=== PATIENT | female | born 2005 | race Caucasian/White ===

== ENCOUNTER 2024-09-17 08:54 | Emergency (ER) | payer OTHER, SELFPAY ==
[2024-09-17 08:58] VITALS: BP 130/91; PULSE 103; RESP 16; TEMP 36.7; O2SAT 98; BMI 27.4
--- NOTE | 2024-09-17 09:15 | ED_ITS ---
HPI - General Adult General Chief complaint: Abdominal Pain Stated complaint: Rt side abdominal pain Time Seen by Provider: 09/17/24 09:10 Source: patient Mode of arrival: ambulatory Limitations: no limitations History of Present Illness HPI narrative: 19-year-old female presenting today with right lower quadrant pain that started yesterday. Pain is a dull aching discomfort. Nothing makes it better or worse. She is not associated with eating. She denies any urinary symptoms such as frequency, urgency or dysuria. No blood in her urine. She states that she has daily bowel movements, last 1 was yesterday and was normal. Menses are regular, last 1 was 2 weeks ago. Denies sexual activity. Denies nausea or vomiting. Denies fevers or chills. Related Data Home Medications ?Medication ?Instructions ?Recorded ?Confirmed No Known Home Medications 09/17/24 09/17/24 Allergies Allergy/AdvReac Type Severity Reaction Status Date / Time cefprozil Allergy Intermediate Rash Verified 09/17/24 09:04 Review of Systems Status of ROS: Reports: 10 or more systems reviewed and unremarkable except as noted in History and below PFSH PFS Social History Smoking Status: Never smoker Do you use any of these nicotine containing products: None Second hand tobacco smoke exposure: No How often do you have a drink containing alcohol: monthly or less How many standard drinks containing alcohol do you have on a typical day: 1 or 2 How often do you have six or more drinks on one occasion: Never AUDIT-C Alcohol total score: 1 Non-prescribed substance use: denies use service: No Exam Narrative: Exam Narrative: Well-nourished well-developed patient in no acute distress. Alert and oriented. Answers questions appropriately. Mood and affect are appropriate. Thoughts are goal oriented and rational. No tangential or magical thinking noted. Patient speaks in full sentences without needing to catch their breath. HEENT: Normocephalic atraumatic. Pupils are equally round reactive to light. Extraocular muscles are intact. Conjunctivae are moist without any icterus noted. Moist mucous membranes. Posterior pharynx is normal. Neck is soft without any lymphadenopathy or thyromegaly. No masses are appreciated. Cardiovascular: Heart is regular rate and rhythm S1 and S2 are present without any murmurs. Lungs: Clear to auscultation bilaterally no wheezes rhonchi or rales are appreciated. Patient takes deep breaths without any discomfort. Abdomen: Soft and nondistended with normal bowel sounds. No guarding or rebound. No masses or organomegaly appreciated. Mild tenderness in the right lower quadrant just above and lateral to the mons pubis. No periumbilical pain. No pain at McBurney's point. Extremities: Bilateral lower extremities are without edema. Skin: Well perfused without any obvious rashes. Const: Vital Signs, click to edit/add: Vital Signs - 24 hr 09/17/24 08:58 Temperature 98.1 F Pulse Rate [Pulse Oximeter] 103 H Respiratory Rate 16 Blood Pressure [Le ft Upper Arm] 130/91 H Pulse Oximetry 98 Oxygen Delivery Me thod Room Air Course Course ED Course: Differential diagnoses includes ectopic , ovarian cyst, constipation, UTI. Less likely appendicitis. CBC normal. Normal lactate. UA, poor specimen, unremarkable. Normal chemistries. Normal LFTs Normal CRP. Normal lipase Ultrasound showing two cysts on the right ovary. Discussed with Dr. Beal who recommends repeat ultrasound in follow-up in 6-8 weeks. I have discussed results with patient. She feels like her pain can be controlled with ibuprofen and does not wish to have a prescription medications at this time. Vital Signs Vital signs: Initial Vital Signs Temperature 98.1 F 09/17/24 08:58 Temperature Source Temporal Artery Scan 09/17/24 08:58 Pulse Rate 103 H 09/17/24 08:58 Pulse Rhythm Regular 09/17/24 08:58 Pulse Strength 3+ Normal 09/17/24 08:58 Respiratory Rate 16 09/17/24 08:58 Blood Pressure 130/91 H 09/17/24 08:58 Blood Pressure Mean 104 09/17/24 08:58 Blood Pressure Position Sitting 09/17/24 08:58 Pulse Oximetry 98 09/17/24 08:58 Oxygen Delivery Method Room Air 09/17/24 08:58 Vital Signs Temperature 98.1 F 09/17/24 08:58 Pulse Rate 103 H 09/17/24 08:58 Respiratory Rate 16 09/17/24 08:58 Blood Pressure 130/91 H 09/17/24 08:58 Pulse Oximetry 98 09/17/24 08:58 Oxygen Delivery Method Room Air 09/17/24 08:58 Temperature 98.1 F 09/17/24 08:58 Pulse Rate 103 H 09/17/24 08:58 Respiratory Rate 16 09/17/24 08:58 Blood Pressure 130/91 H 09/17/24 08:58 Pulse Oximetry 98 09/17/24 08:58 Oxygen Delivery Method Room Air 09/17/24 08:58 Medical Decision Making MDM Narrative Medical decision making narrative: 19-year-old female with 2 cysts on the right ovary 1 likely a hemorrhagic cyst and the other likely an endometrioma. Lab Data Labs: Lab Results 09/17/24 09/17/24 Range/Units 09:23 09:25 WBC 7.78 (4.50-11.00) K/uL RBC 4.50 (4.00-5.20) m/uL Hgb 13.1 (12.0-16.0) gm/dL Hct 39.1 (33.0-51.0) % MCV 87 (80-100) fL MCH 29 (26-34) pg MCHC 34 (32-36) gm/dL RDW Coeff of Ham 11.9 (11.5-15.5) % Plt Count 341 (140-440) K/uL Neut % (Auto) 61.7 (42.0-72.0) % Lymph % (Auto) 26.0 (20-44) % Sherman % (Auto) 8.0 (0.0-11.0) % Eos % (Auto) 3.7 (0.0-7.0) % Baso % (Auto) 0.5 (0.0-3.0) % Neut # (Auto) 4.80 (1.7-7.0) K/uL Lymph # (Auto) 2.02 (0.90-2.90) K/uL Sherman # (Auto) 0.60 (0.00-0.90) K/UL Eos # (Auto) 0.29 (0.00-0.50) K/uL Baso # (Auto) 0.04 (0.00-0.30) K/uL Abs Immat Gran (auto) 0.01 (0.00-0.30) K/uL Imm/Tot Granulo (auto) 0.1 % Sodium 139 (135-149) mmol/L Potassium 4.2 (3.6-5.1) mmol/L Chloride 103 (96-114) mmol/L Carbon Dioxide 27 (20-32) mmol/L Anion Gap 9 (7-15) mEq/L BUN 10 (5-24) mg/dL Creatinine 0.6 (0.5-1.5) mg/dL Estimated Creat Clear 144.23 Estimated GFR 131 ml/min Glucose 90 (60-115) mg/dL Lactate 0.9 (0.5-1.9) mmol/L Calcium 9.6 (8.4-10.6) mg/dL Total Bilirubin 0.4 (0.1-1.5) mg/dL Direct Bilirubin 0.0 (0.0-0.5) mg/dL AST 26 (12-35) U/L ALT 22 (4-35) U/L Alkaline Phosphatase 53 (40-150) U/L C-Reactive Protein < 0.5 L (0.5-1.0) mg/dL Total Protein 7.6 (6.0-8.3) g/dL Albumin 4.9 (3.3-5.0) g/dL Lipase 52 (23-300) U/L Urine Color Yellow (Yellow) Urine Appearance Clear (Clear) Urine pH 7.0 (5.0-8.5) Ur Specific [place] 1.020 (1.000-1.030) Urine Protein 1+ A (Negative) Urine Glucose (UA) Negative (Negative) Urine Ketones Negative (Negative) Urine Blood Negative (Negative) Urine Nitrite Negative (Negative) Urine Bilirubin Negative (Negative) Urine Urobilinogen 0.2 (0.2-1.0) Ur Leukocyte Esterase Negative (Negative) Urine RBC 0-2 (0-2) Urine WBC 0-2 (0-5) Ur Squamous Epith Cells Moderate A (None-Few) Amorphous Sediment Few A (None) Urine Bacteria Moderate A (None) Urine HCG, Qual Negative (Negative) Imaging Data Pelvic ultrasound: Attestation: I have reviewed the pertinent imaging results. Radiologist's impression: TECHNIQUE: Ultrasound pelvis transabdominal and transvaginal for better assessment or to better visualize the endometrium. Real-time sonographic images with spectral and color Doppler imaging of the ovaries were obtained. COMPARISON: None. FINDINGS: Uterus: 8.3 x 3.4 x 4.8 cm. Normal echotexture of the myometrium. No masses. Endometrium: Transvaginal imaging was performed to better evaluate the endometrium. Endometrial thickness measures 8 mm. No sign of endometrial mass or fluid. Right ovary 7.2 x 4.2 x 4.4 centimeter. Left ovary 4.3 x 2.3 x 3.3 centimeters. In the right ovary there is a lesion with internal reticulation measuring 4 x 4 x 3.8 centimeters. There is a 2nd lesion with retracted clot, which was not measured, but is approximately 4 x 2.2 centimeters. Corpus luteum in the left ovary normal arterial and venous blood flow is demonstrated in both ovaries. Cul-de-sac: Trace fluid. IMPRESSION: There is a right ovarian hemorrhagic cyst with retracted clot (O-RADS 2). There is a 2nd right ovarian lesion measuring 4.3 x 2.3 x 3.3 centimeters with diffuse internal reticulation, likely endometrioma, less likely hemorrhagic cyst. If not excised, repeat ultrasound can be considered in 12 months (O -RADS 2). Normal uterus with normal endometrium. Discharge Plan Discharge Clinical Impression: Ovarian cyst Patient Disposition: Home, Self-Care Condition: Stable Additional Instructions: There are 2 ovarian cysts on the right ovary. One is called a hemorrhagic cyst which can cause discomfort for a couple of weeks. The other appears to be an endometrioma which can be a sign of endometriosis. Because of this you should follow-up with an OBGYN or primary care provider in 6-8 weeks for repeat ultrasound of your ovaries. Prescriptions: No Action No Known Home Medications Follow Up/Referrals: Provider,Not a Local [Primary Care Provider] - Stand Alone Forms: [employer] Info Instructions
--- NOTE | 2024-09-17 09:15 | CRLHL7_ITS ---
For Patients: As a result of the Century Cures Act, medical imaging exams and procedure reports are released immediately into your electronic medical record. You may view this report before your referring provider. If you have questions, please contact your health care provider. INDICATION: Right lower quadrant pain TECHNIQUE: Ultrasound pelvis transabdominal and transvaginal for better assessment or to better visualize the endometrium. Real-time sonographic images with spectral and color Doppler imaging of the ovaries were obtained. COMPARISON: None. FINDINGS: Uterus: 8.3 x 3.4 x 4.8 cm. Normal echotexture of the myometrium. No masses. Endometrium: Transvaginal imaging was performed to better evaluate the endometrium. Endometrial thickness measures 8 mm. No sign of endometrial mass or fluid. Right ovary 7.2 x 4.2 x 4.4 centimeter. Left ovary 4.3 x 2.3 x 3.3 centimeters. In the right ovary there is a lesion with internal reticulation measuring 4 x 4 x 3.8 centimeters. There is a 2nd lesion with retracted clot, which was not measured, but is approximately 4 x 2.2 centimeters. Corpus luteum in the left ovary normal arterial and venous blood flow is demonstrated in both ovaries. Cul-de-sac: Trace fluid. IMPRESSION: There is a right ovarian hemorrhagic cyst with retracted clot (O-RADS 2). There is a 2nd right ovarian lesion measuring 4.3 x 2.3 x 3.3 centimeters with diffuse internal reticulation, likely endometrioma, less likely hemorrhagic cyst. If not excised, repeat ultrasound can be considered in 12 months (O -RADS 2). Normal uterus with normal endometrium. Dictated by Alena Key MD @ 09/17/2024 10:41:42 AM (Electronically Signed)
[2024-09-17 09:31] LABS: Basophils Absolute Auto 0.04 K/uL (0.00-0.30); Basophils Percent Auto 0.5 % (0.0-3.0); Eosinophils Absolute Auto 0.29 K/uL (0.00-0.50); Eosinophils Percent Auto 3.7 % (0.0-7.0); Hematocrit 39.1 % (33.0-51.0); Hemoglobin* 13.1 gm/dL (12.0-16.0); Immature Granulocytes Abs Auto 0.01 K/uL (0.00-0.30); Immature Granulocytes Pct Auto 0.1 %; Lymphocytes Absolute Auto 2.02 K/uL (0.90-2.90); Mean Corpuscular HGB Conc 34 gm/dL (32-36); Mean Corpuscular Hemoglobin 29 pg (26-34); Mean Corpuscular Volume 87 fL (80-100); Neutrophils Percent Auto 61.7 % (42.0-72.0); Platelet Count* 341 K/uL (140-440); RDW Coefficient of Variation % 11.9 % (11.5-15.5); White Blood Count* 7.78 K/uL (4.50-11.00)
[2024-09-17 09:33] LABS: Appearance Urine Clear (Clear); Bilirubin Urine Negative (Negative); Blood Urine Negative (Negative); Color Urine Yellow (Yellow); Glucose Urine Negative (Negative); Ketones Urine Negative (Negative); Leukocyte Esterase Urine Negative (Negative); Nitrite Urine Negative (Negative); Protein Urine 1+ (Negative); Urobilinogen Urine 0.2 (0.2-1.0)
[2024-09-17 09:35] LABS: Ur HCG Qualitative* Negative (Negative)
[2024-09-17 09:41] LABS: Amorphous Sediment Urine Few; Bacteria Urine Moderate; RBC Urine 0-2 (0-2); Squamous Epithelial Cell Urine Moderate (None-Few); WBC Urine 0-2 (0-5)
[2024-09-17 09:47] LABS: Slide Review Reflex No
[2024-09-17 09:56] LABS: Lactate* 0.9 mmol/L (0.5-1.9)
[2024-09-17 10:12] LABS: Albumin* 4.9 g/dL (3.3-5.0)
[2024-09-17 10:13] LABS: Chloride* 103 mmol/L (96-114); Potassium* 4.2 mmol/L (3.6-5.1); Sodium* 139 mmol/L (135-149)
[2024-09-17 10:14] LABS: Total Protein* 7.6 g/dL (6.0-8.3)
[2024-09-17 10:15] LABS: Alanine Aminotransferase* 22 U/L (4-35); Alkaline Phosphatase* 53 U/L (40-150); Aspartate Amino Transferase* 26 U/L (12-35); Bilirubin Total* 0.4 mg/dL (0.1-1.5); Lipase* 52 U/L (23-300)
[2024-09-17 10:16] LABS: Anion Gap 9 mEq/L (7-15); Blood Urea Nitrogen* 10 mg/dL (5-24); Carbon Dioxide* 27 mmol/L (20-32); Creatinine* 0.6 mg/dL (0.5-1.5); Est. Creatinine Clearance* 144.23; Estimated Glomerular Filt Rate 131 ml/min
[2024-09-17 10:17] LABS: Calcium* 9.6 mg/dL (8.4-10.6); Glucose* 90 mg/dL (60-115)
[2024-09-17 10:20] LABS: C Reactive Protein* < 0.5 mg/dL (0.5-1.0)
== END 2024-09-17 11:05 | disposition home or self-care (01) ==
PROVIDERS: Emergency Provider Family Medicine
DX: N83.201 Unspecified ovarian cyst, right side (principal)
CPT/HCPCS: 36415; 76830; 76856; 80048; 80076; 81001; 81025; 83605; 83690; 85025; 86140; 87086; 93976; 99284

== ENCOUNTER 2024-10-10 07:22 | Emergency (ER) | payer OTHER, SELFPAY ==
[2024-10-10 07:27] VITALS: BP 136/82; PULSE 104; RESP 16; TEMP 36.3; O2SAT 99; BMI 27.4
--- NOTE | 2024-10-10 07:38 | ED_ITS ---
HPI - General Adult General Chief complaint: Abdominal Pain Stated complaint: R side abdominal pain Time Seen by Provider: 10/10/24 07:38 History of Present Illness HPI narrative: Patient with RLQ pain onset yesterday. HX ovarian cysts. LMP 09/29. Reporting nausea. Has tried heat packs and one dose ibuprofen (600mg) yesterday without relief. 19-year-old young woman presenting to the emergency department concern of right lower abdominal pain beginning yesterday. Describes an intense pressure. Just finished menses last week. No fever. Particularly bothersome is nausea. She has tried some heat packs as well as ibuprofen. Last time she presented here was about 3 weeks ago noting a right ovarian hemorrhagic cyst and another lesion suspected to be an endometrioma on the right ovary. At that time she was concerned about appendicitis. This time is even more intense. No fever. No constipation. No diarrhea. No vomiting. Ultrasound from 09/17/2024 TECHNIQUE: Ultrasound pelvis transabdominal and transvaginal for better assessment or to better visualize the endometrium. Real-time sonographic images with spectral and color Doppler imaging of the ovaries were obtained. COMPARISON: None. FINDINGS: Uterus: 8.3 x 3.4 x 4.8 cm. Normal echotexture of the myometrium. No masses. Endometrium: Transvaginal imaging was performed to better evaluate the endometrium. Endometrial thickness measures 8 mm. No sign of endometrial mass or fluid. Right ovary 7.2 x 4.2 x 4.4 centimeter. Left ovary 4.3 x 2.3 x 3.3 centimeters. In the right ovary there is a lesion with internal reticulation measuring 4 x 4 x 3.8 centimeters. There is a 2nd lesion with retracted clot, which was not measured, but is approximately 4 x 2.2 centimeters. Corpus luteum in the left ovary normal arterial and venous blood flow is demonstrated in both ovaries. Cul-de-sac: Trace fluid. IMPRESSION: There is a right ovarian hemorrhagic cyst with retracted clot (O-RADS 2). There is a 2nd right ovarian lesion measuring 4.3 x 2.3 x 3.3 centimeters with diffuse internal reticulation, likely endometrioma, less likely hemorrhagic cyst. If not excised, repeat ultrasound can be considered in 12 months (O -RADS 2). Normal uterus with normal endometrium. Related Data Home Medications ?Medication ?Instructions ?Recorded ?Confirmed No Known Home Medications 09/17/24 10/10/24 Allergies Allergy/AdvReac Type Severity Reaction Status Date / Time cefprozil Allergy Intermediate Rash Verified 10/10/24 07:30 Review of Systems Status of ROS: Reports: 6 or more systems reviewed and unremarkable except as noted in History and below [facility] Social History Smoking Status: Never smoker Do you use any of these nicotine containing products: None Second hand tobacco smoke exposure: No How often do you have a drink containing alcohol: monthly or less How many standard drinks containing alcohol do you have on a typical day: 1 or 2 How often do you have six or more drinks on one occasion: Never AUDIT-C Alcohol total score: 1 Non-prescribed substance use: denies use service: No Exam Narrative: Exam Narrative: Pleasant. Laughs easily. Accompanied by a friend. She is lying prone when I enter the room. Turns over without notable difficulty. She is breathing easily. Heart in elevated rate and regular rhythm. No murmur rub or gallop identified. Abdomen with normal bowel sounds. Is soft. She is most tender without peritoneal signs in the right adnexal area. Little bit in McBurney's area but I would say primarily this is that is adnexal pain. Const: Vital Signs, click to edit/add: Vital Signs - 24 hr 10/10/24 07:27 Temperature 97.4 F L Pulse Rate [Pulse Oximeter] 104 H Respiratory Rate 16 Blood Pressure [Ri ght Upper Arm] 136/82 Pulse Oximetry 99 Oxygen Delivery Me thod Room Air Documenting provider has reviewed patient's vital signs: yes Course Vital Signs Vital signs: Initial Vital Signs Temperature 97.4 F L 10/10/24 07:27 Temperature Source Temporal Artery Scan 10/10/24 07:27 Pulse Rate 104 H 10/10/24 07:27 Respiratory Rate 16 10/10/24 07:27 Blood Pressure 136/82 10/10/24 07:27 Blood Pressure Mean 100 10/10/24 07:27 Blood Pressure Position Sitting 10/10/24 07:27 Pulse Oximetry 99 10/10/24 07:27 Oxygen Delivery Method Room Air 10/10/24 07:27 Vital Signs Temperature 97.4 F L 11/12/24 07:27 Pulse Rate 104 H 10/10/24 07:27 Respiratory Rate 16 10/10/24 07:27 Blood Pressure 136/82 10/10/24 07:27 Pulse Oximetry 99 10/10/24 07:27 Oxygen Delivery Method Room Air 10/10/24 07:27 Temperature 97.4 F L 10/10/24 07:27 Pulse Rate 104 H 10/10/24 07:27 Respiratory Rate 16 10/10/24 07:27 Blood Pressure 136/82 10/10/24 07:27 Pulse Oximetry 99 10/10/24 07:27 Oxygen Delivery Method Room Air 10/10/24 07:27 Medications Administered Medications: Discontinued Medications Generic Name Dose Route Start Last Admin Trade Name Freq PRN Reason Stop Dose Admin Ondansetron HCl 4 mg 10/10/24 07:46 10/10/24 07:50 Ondansetron Odt 4 Mg Tab PO 10/10/24 07:47 4 mg ONCE ONE Administration Medical Decision Making MDM Narrative Medical decision making narrative: I would think this is likely to be related to prior ovarian cyst. Torsion is certainly in differential though I do not think discomfort rises to that level. Appendicitis, given exam and timing I think is less likely. Otherwise I suppose this could be bowel related pain. Would certainly verify status regardless. Will give Zofran ODT and have requested pelvic ultrasound urinalysis and urine hCG. Pending these results, further workup if necessary. Anticipating discharge, pending findings above, with continued NSAIDs, Zofran and possibly an opiate. Signing off at change of shift pending labs and ultrasound Medical Records Medical records reviewed: Yes I reviewed the patient's medical records Discharge Plan Discharge Clinical Impression: Ovarian cyst, Pelvic pain Patient Disposition: Home w/ Parent or Adult Condition: Stable Additional Instructions: Can take up to 800 mg ibuprofen or up to 1000 mg of acetaminophen per dose. Stay well-hydrated. Be seen for marked increase in persistent pain, repeated vomiting, fever. Would follow up if for re-evaluation in approximately 5-6 weeks. Prescriptions: No Action No Known Home Medications Follow Up/Referrals: Provider,Not a Local [Primary Care Provider] - Stand Alone Forms: [employer] Info Instructions
--- NOTE | 2024-10-10 07:45 | CRLHL7_ITS ---
For Patients: As a result of the Century Cures Act, medical imaging exams and procedure reports are released immediately into your electronic medical record. You may view this report before your referring provider. If you have questions, please contact your health care provider. INDICATION: Right adnexal pain TECHNIQUE: Ultrasound pelvis transabdominal and transvaginal for better assessment or to better visualize the endometrium. Real-time sonographic images with spectral and color Doppler imaging of the ovaries were obtained. COMPARISON: Pelvic ultrasound 09/17/2024 FINDINGS: Uterus: 7.5 x 3.4 x 4.5 cm. Normal echotexture of the myometrium. No masses. Endometrium: Transvaginal imaging was performed to better evaluate the endometrium. Endometrial thickness measures 6 mm. No sign of endometrial mass or fluid. Right ovary 6.8 x 4.3 x 5.8 centimeters. Left ovary 3.5 x 2.1 x 2.4 centimeters. Redemonstration right ovarian lesions, with the larger lesion measuring 4.4 x 3.7 x 3.9 centimeters with internal reticulation, previously 4 x 4 x 3.8 centimeters and the 2nd lesion with possible retracted clot in increased internal reticulation measuring 4.1 x 2.4 x 3.5 centimeters, previously 4 x 2.2 centimeters. Normal arterial and venous blood flow is demonstrated in both ovaries. Cul-de-sac: Trace pelvic free fluid. IMPRESSION: Similar size of right ovarian lesions, with the larger lesion likely representing endometrioma, as before (O-RADS 2) and repeat US in 12 months can be considered if this is not excised. The smaller lesion demonstrates more reticulation when compared to prior and may represent a hemorrhagic cyst or endometrioma(O-RADS 2). Combined size of these lesions increases risk for ovarian torsion, though there is no evidence of ovarian torsion at this time. Normal uterus with normal endometrial thickness. Trace pelvic free fluid. Dictated by Alena Key MD @ 10/10/2024 8:38:34 AM (Electronically Signed)
[2024-10-10] MEDS: ONDANSETRON ODT 4 MG TAB PO (07:50)
[2024-10-10 08:00] VITALS: PULSE 63; O2SAT 100
--- OUTSIDE RECORDS SUMMARY | 2024-10-10 08:01 | XMS_ITS | Encounter Summary ---
Author Organization [facility] Address [address] [place] [address]. [place] [address] Care Team Providers Care Aerosol Line Operator Name Role Phone Lianne Gonzalez MD Primary Care Provider [phone] Lianne Gonzalez MD Unavailable Reason for Visit * Reason Onset Date Comments Nausea 09/25/2024 Encounter Details Date Type Department Care Team (Late st Contact Info) Description 09/25/2024 MyC Medical Advice [facility] [address] [place] [phone] Lianne Gonzalez MD [address] [place], [place] [id number] Nausea (/) Social History Tobacco Use Types Packs/Day Years Used Date Smoking Tobacco: Never Smokeless Tobacco: Never Alcohol Use Standard Drinks/Week Comments No 0 (1 standard drink = 0.6 oz pur e alcohol) PHQ-2 Answer Date Recorded PHQ-2 Score 0 12/08/2021 Adolescent Education Answer Date Record ed Getting School Help Needed Not on file 08/20 Comments No Sex and Gender Information Value Date Recorded Sex Assigned at Not on file Legal Sex Female 12:27 AM CLINICAL DATA MANAGEMENT MANAGER Gender Identity Not on file Sexual Orientation Not on file documented as of this encounter Miscellaneous Notes * Telephone Encounter - Meghan Larose RN - 09/25/2024 9:[address] Gonzalez, Patient asking for something for nausea. You have not seen her since 12/08/2021. Do you want to prescribe something or does she need to be seen? Patient having nausea and asking for something for this. 09/17/24 (ER Visit- not in system) with right abdominal pain. 2 cysts on ovaries found (one hemorrhagic and one was a possible endometrioma). 12/08/[address] Gonzalez. Meghan Larose, RN on 09/25/2024 at 9:47 AM documented in this encounter Plan of Treatment Upcoming Encounters Date Type Department Care Team (Late st Contact Info) Description 11/17/2024 12:45 PM CLINICAL DATA MANAGEMENT MANAGER Appointment [address] [place] [phone] Lianne Gonzalez MD [address] [place] [address] [place], [place] [phone] 11/17/2024 1:30 PM CLINICAL DATA MANAGEMENT MANAGER Office Visit [address] [place] [phone] [place] [address] [place] [address] [place], [place] [phone] Arianne Alanis MD [address] [facility] [place], [place] [id number] 12/01/2024 1:40 PM CLINICAL DATA MANAGEMENT MANAGER Office Visit [address] [place] [phone] [place] [address] [place] [address] [place], [place] [id number] documented as of this encounter Visit Diagnoses Diagnosis Nausea- Primary Nausea alone documented in this encounter Additional Health Concerns Assessment Noted Time PHQ-9 Depression Total Score: 1 12/09/19 21 2:08 PM CLINICAL DATA MANAGEMENT MANAGER documented as of this encounter Care Teams Aerosol Line Operator Relationship Specialty Start Date End Date Lianne Gonzalez MD [address] [place] [id number] PCP - General Family Practice 09/09/18 Lianne Gonzalez MD [address] [place] [id number] Assigned PCP 12/22/20 documented as of this encounter
--- OUTSIDE RECORDS SUMMARY | 2024-10-10 08:01 | XMS_ITS | Referral Summary ---
Author Organization [facility] Address [address] [place] [address]. [place] [address] Care Team Providers Care Pricing Consultant Name Role Phone Lianne Gonzalez MD Primary Care Provider [phone] Lianne Gonzalez MD Unavailable Encounters Date Type Department Care Team Description 09/25/2024 [facility] [address] [place] [phone] Lianne Gonzalez MD Nausea (/) 09/17/2024 [facility] [address] [place] [phone] Lianne Gonzalez MD Patient Request (/) from Last 3 Months Allergies Active Allergy Reactions Criticality Noted Date Comments Cefprozil Rash Low 09/05/2013 Cefzil Medications norgestimate-et hinyl estradiol (ORTHO-CYCLEN) 0.25-35 MG-MCG tabletIndicatio ns:Dysmenorrhea Take 1 tablet by mouth daily 84 tablet 3 1 Active Additional Information Patient not taking.Reported on 12/08/2021 azithromycin (ZITHROMAX) 500 MG tabletIndicatio ns:Travel advice encounter Take 1 tablet (500 mg) by mouth daily 10 tablet 2 Active ciprofloxacin (CIPRO) 500 MG tabletIndicatio ns:Travel advice encounter Take 1 tablet (500 mg) by mouth 2 times daily 20 tablet 2 Active ondansetron (ZOFRAN ODT) 4 MG ODT tabIndications: Nausea Take 1 tablet (4 mg) by mouth every 8 hours as needed for nausea. 12 tablet 4 Active Active Problems No known active problems Resolved Problems Problem Noted Date Diagnosed Date Resolved Date Right otitis media with effusion 01/23/2015 06/26/2019 Immunizations Name Administration Dates Next Due COVID-19 MONOVALENT 12+ (Pfizer) 12/17/2021,02/28,03/05/2021 DTAP (<7y) 12/22/2004 DTAP-IPV, <7Y (QUADRACEL/KINRIX) 09/20/2008 DTaP/HepB/IPV 01/28/2004,2003,2003 HEPATITIS A (PEDS 12M-18Y) 06/28/2017,07/09/2016 HIB (PRP-T) 08/25/2004,2003,2003 HPV9 06/28/2017,09/17/2016,07/09/2016 HepB 2003 Influenza (H1N1) 11/19/2009,10/19/2009 Influenza (IIV3) PF 09/20/2015, 3,09/03/2012,2010,10/08/2010,08/24/2009 Influenza Intranasal Vaccine 09/21/2014 Influenza Vaccine >6 months,quad, PF 10/01/2017, 09/24/2016,09/13/2013 MMR 09/20/2008,12/22/2004 Meningococcal ACWY (Menactra??) 07/18/2021,09/17 Pneumococcal (PCV 7) 08/25/2004,2003,10/04 TDAP Vaccine (Boostrix) 07/09/2016 Typhoid IM 02/20/2022,04/06/2019 Varicella 08/27/2009,08/25/2004 Social History Tobacco Use Types Packs/Day Years [...] on file Legal Sex Female 12:27 AM CAREER PROFESSIONAL Gender Identity Not on file Sexual Orientation Not on file Last Filed Vital Signs Vital Sign Reading Time Taken Comments Blood Pressure 118/72 12/08/2021 10:47 AM CAREER PROFESSIONAL Pulse 58 12/08/2021 10:47 AM CAREER PROFESSIONAL Temperature 36.7 ??C (98.1 ??F) 12/08/2021 10:[address] Respiratory Rate 18 12/08/2021 10:47 AM CAREER PROFESSIONAL Oxygen Saturation 98% 12/08/2021 10:47 AM CAREER PROFESSIONAL Inhaled Oxygen Concentration - - Weight 73.5 kg (162 lb) 12/08/2021 10:47 AM CAREER PROFESSIONAL Height 170.2 cm (5' 7) 12/09/2020 2:04 PM CAREER PROFESSIONAL Body Mass Index 25.37 12/09/2020 2:04 PM CAREER PROFESSIONAL Plan of Treatment Upcoming Encounters Date Type Department Care Team (Late st Contact Info) Description 11/17/2024 12:45 PM CAREER PROFESSIONAL Appointment [facility] [address] [facility] [place] [phone] Lianne Gonzalez MD [address] [place], [place] [address] 11/17/2024 1:30 PM CAREER PROFESSIONAL Office Visit [facility] [address] [facility] [place] [phone] Lianne Gonzalez MD [address] [place], [place] [phone] Arianne Alanis MD [address] [place] [address] 12/01/2024 1:40 PM CAREER PROFESSIONAL Office Visit [facility] [address] [facility] [place] [phone] Lianne Gonzalez MD [address] [place], [place] [address] Insurance MEDICA CHOICE Care Teams Pricing Consultant Relationship Specialty Start Date End Date Lianne Gonzalez MD [address] [place] [address] PCP - General Family Practice 09/09/18 Lianne Gonzalez MD [address] [place] [address] Assigned PCP 12/22/20
--- OUTSIDE RECORDS SUMMARY | 2024-10-10 08:01 | XMS_ITS | Clinical Summary ---
Author Organization [facility] Address [address] [place] [address]. [place] [address] Care Team Providers Care Group Leader Semiconductor Processing Name Role Phone Lianne Gonzalez MD Primary Care Provider [phone] Lianne Gonzalez MD Unavailable Allergies Active Allergy Reactions Criticality Noted Date [...] Right otitis media with effusion 01/23/2015 06/26/2019 Encounters Date Type Department Care Team Description 09/25/2024 [facility] [address] [place] [phone] Lianne Gonzalez MD Nausea (/) 09/17/2024 [facility] [address] [place] [phone] Lianne Gonzalez MD Patient Request (/) from Last 3 Months Immunizations Name Administration Dates Next Due COVID-19 [...] (Boostrix) 07/09/2016 Typhoid IM 02/20/2022,04/06/2019 Varicella 08/27/2009,08/25/2004 Family History Medical History Relation Comments No Known Problems Brother Hyperlipidemia Father Rheumatoid Arthritis Mother Rheumatoid Arthritis Paternal Grandmother Sjogren's Paternal Grandmother No Known Problems Sister 1 No Known Problems Sister 2 Relation Status Comments Brother Alive Father Alive Mother Alive Paternal Grandmother Sister 1 Alive Sister 2 Alive Social History Tobacco Use Types Packs/Day Years [...] on file Legal Sex Female 12:27 AM CHIEF INVESTIGATOR Gender Identity Not on file Sexual Orientation Not on file Last Filed Vital Signs Vital Sign Reading Time Taken Comments Blood Pressure 118/72 12/08/2021 10:47 AM CHIEF INVESTIGATOR Pulse 58 12/08/2021 10:47 AM CHIEF INVESTIGATOR Temperature 36.7 ??C (98.1 ??F) 12/08/2021 10:[address] Respiratory Rate 18 12/08/2021 10:47 AM CHIEF INVESTIGATOR Oxygen Saturation 98% 12/08/2021 10:47 AM CHIEF INVESTIGATOR Inhaled Oxygen Concentration - - Weight 73.5 kg (162 lb) 12/08/2021 10:47 AM CHIEF INVESTIGATOR Height 170.2 cm (5' 7) 12/09/2020 2:04 PM CHIEF INVESTIGATOR Body Mass Index 25.37 12/09/2020 2:04 PM CHIEF INVESTIGATOR Plan of Treatment Upcoming Encounters Date Type Department Care Team (Late st Contact Info) Description 11/17/2024 12:45 PM CHIEF INVESTIGATOR Appointment [facility] [address] [place] [phone] Lianne Gonzalez MD [address] [place], [place] [address] 11/17/2024 1:30 PM CHIEF INVESTIGATOR Office Visit [facility] [address] [place] [phone] Lianne Gonzalez MD [address] [facility] [place] [address] Arianne Alanis MD [address] [place] [address] 12/01/2024 1:40 PM CHIEF INVESTIGATOR Office Visit [facility] [address] [place] [phone] Lianne Gonzalez MD [address] [place] [id number] Health Maintenance Due Date Last Done Comments ADVANCE CARE PLANNING 2003 ANNUAL REVIEW OF HM ORDERS 2003 CHLAMYDIA SCREENING 2003 HIV SCREENING 2018 YEARLY PREVENTIVE VISIT 06/26/2020 06/26/2019 HEPATITIS C SCREENING 2021 PHQ-2 (once per calendar year) 2023 12/08/2021, 12/09/2020, 12/09/2020, Additional history exists COVID-19 Vaccine ( season) 2024 09/02/2023, 09/17/2022, 12/17/2021, Additional history exists INFLUENZA VACCINE (#1) 2024 , 09/10/2022, 10/01/2017, Additional history exists PAP 2024 DTAP/TDAP/TD IMMUNIZATION (7 - Td or Tdap) 07/09/2026 07/09/2016, 09/20/2008, 12/22/2004, Additional history exists RSV VACCINE (1 - 1-dose 75+ series) 2078 HEPATITIS B IMMUNIZATION Completed 004, 2003, 2003, Additional history exists Pneumococcal Vaccine: Pediatrics (0 to 5 Years) and At-Risk Patients (6 to 64 Years) Aged Out 08/25/2004, 2003, 2003 No longer eligible based on patient's age to complete this topic HPV IMMUNIZATION Completed 06/28/2017, , 07/09/2016 MENINGITIS IMMUNIZATION Completed 07/18/2021, 09/17 RSV MONOCLONAL ANTIBODY Aged Out No l onger eligible based on patient's age to complete this topic Insurance MEDICA CHOICE Care Teams Group Leader Semiconductor Processing Relationship Specialty Start Date End Date Lianne Gonzalez MD [address] [place] [address] PCP - General Family Practice 09/09/18 Lianne Gonzalez MD [address] [place] [address] Assigned PCP 12/22/20
--- OUTSIDE RECORDS SUMMARY | 2024-10-10 08:02 | XMS_ITS | Encounter Summary ---
Author Organization [facility] Address [address] [place] [address]. [place] [address] Care Team Providers Care Police Commanding Officer Name Role Phone Lianne Gonzalez MD Primary Care Provider [phone] Lianne Gonzalez MD Unavailable Encounter Details Date Type Department Care Team (Late st Contact Info) Description 03/27/2021 Documentation Only INTERFACED REPORT Unknown, Provider Social History Tobacco Use Types Packs/Day Years Used Date Smoking Tobacco: Never Smokeless Tobacco: Never Alcohol Use Standard Drinks/Week Comments No 0 (1 standard drink = 0.6 oz pur e alcohol) PHQ-2 Answer Date Recorded PHQ-2 Score 0 12/09/2020 Comments No Sex and Gender Information Value Date Recorded Sex Assigned at Not on file Legal Sex Female 12:27 AM TERMINAL SYSTEM OPERATOR Gender Identity Not on file Sexual Orientation Not on file documented as of this encounter Plan of Treatment Upcoming Encounters Date Type Department Care Team (Late st Contact Info) Description 11/17/2024 12:45 PM TERMINAL SYSTEM OPERATOR Appointment [facility] [address] [place] [phone] Lianne Gonzalez MD [address] [place], [place] [address] 11/17/2024 1:30 PM TERMINAL SYSTEM OPERATOR Office Visit [facility] [address] [place] [phone] Lianne Gonzalez MD [address] [place], [place] [phone] Arianne Alanis MD [address] [place] [address] 12/01/2024 1:40 PM TERMINAL SYSTEM OPERATOR Office Visit [facility] [address] [place] [phone] Lianne Gonzalez MD [address] [place] [address] documented as of this encounter Visit Diagnoses Not on filedocumented in this encounter Additional Health Concerns Assessment Noted Time PHQ-9 Depression Total Score: 1 12/09/19 21 2:08 PM TERMINAL SYSTEM OPERATOR documented as of this encounter Care Teams Police Commanding Officer Relationship Specialty Start Date End Date Lianne Gonzalez MD [address] [place] [address] PCP - General Family Practice 09/09/18 Lianne Gonzalez MD [address] [place] [address] Assigned PCP 12/22/20 documented as of this encounter
--- OUTSIDE RECORDS SUMMARY | 2024-10-10 08:02 | XMS_ITS | Encounter Summary ---
Author Organization [facility] Address [address] [place] [address]. [place] [address] Care Team Providers Care Dice Dealer Name Role Phone Lianne Gonzalez MD Primary Care Provider [phone] Lianne Gonzalez MD Unavailable Reason for Referral * Consultation (Routine: Next available opening) - Authorized Specialty Diagnoses / Procedures Referred By Contning t Referred To Contact liquor bridge operator helper Diagnoses Cyst of ovary, unspecified laterality Lianne Gonzalez MD [address] [place] [address] Phone: tel: fax: [facility] [address] [place] [address] Phone: tel: Referral ID Status Reason Start Date Expiration Date V isits Requested Visits Authorized [id number] Authorized 09/18/2024 09/18/2025 1 1 Question Answer Reason for Referral: Other My Clinical Question Is: follow up ovarian cysts Have orders been placed in [facility] (imaging, labs, etc.) that need to be completed prior to the patient's consult? Yes Scheduling Instructions: [facility] will call you to coordinate your care as prescribed by your provider. If you don't hear from a sales representative [employer] within 2 business days, please call . Comments Please be aware that coverage of these services is subject to the terms and limitations of your health insurance plan. Call member services at your health plan with any benefit or coverage questions. [facility] will call you to coordinate your care as prescribed by your provider. If you don't hear from a sales representative [employer] within 2 business days, please call . * Diagnostic Imaging Ultrasound (Routine) - Authorized Specialty Diagnoses / Procedures Referred By Contning t Referred To Contact Radiology. Diagnoses Cyst of ovary, unspecified laterality Procedures US Pelvic Complete with Transvaginal Lianne Gonzalez MD [address] [place] [address] Phone: tel: fax: Referral ID Status Reason Start Date Expiration Date V isits Requested Visits Authorized [id number] Authorized 09/18/2024 09/18/2025 1 1 Reason for Visit * Reason Onset Date Comments Patient Request 09/17/2024 Encounter Details Date Type Department Care Team (Late st Contact Info) Description 09/17/2024 MyC Medical Advice [facility] [address] [employer] [facility] [place] [phone] Lianne Gonzalez MD [address] [employer] [facility] [place] [address] Patient Request (/) Social History Tobacco Use Types Packs/Day [...] on file Legal Sex Female 12:27 AM CRYSTAL CUTTER Gender Identity Not on file Sexual Orientation Not on file documented as of this encounter Miscellaneous Notes * Telephone Encounter - Meghan Larose RN - 09/18/2024 9:35 AM CDT 09/17/24 (ER Visit- not in system) with right abdominal pain. 2 cysts on ovaries found (one hemorrhagic and one was a possible endometrioma). Follow up in 6-8 weeks- with PCP or UNINDENTURED APPRENTICE? Meghan Larose RN on 09/18/2024 at 9:36 AM documented in this encounter Plan of Treatment Upcoming Encounters Date Type Department Care Team (Late st Contact Info) Description 11/17/2024 12:45 PM CRYSTAL CUTTER Appointment [facility] [address] [facility] [place] [phone] Lianne Gonzalez MD [address] [place], [place] [address] 11/17/2024 1:30 PM CRYSTAL CUTTER Office Visit [facility] [address] [place] [phone] Lianne Gonzalez MD [address] [place], [place] [phone] Arianne Alanis MD [address] [place], [place] [address] 12/01/2024 1:40 PM CRYSTAL CUTTER Office Visit [facility] [address] [place] [phone] Lianne Gonzalez MD [address] [place], [place] [address] Scheduled Orders Name Type Priority Associated Diagnoses Orde r Schedule US Pelvic Complete with Transvaginal Imaging Routine Cyst of ovary, unspecified laterality Expected: 11/15/2024 (Approximate), Expires: 09/18/2025 Scheduled Referrals Name Type Priority Associated Diagnoses Orde r Schedule Caustic Purification Operator Associate Professor Plant Pathology Referral Referral Routine: Next available opening Cyst of ovary, unspecified laterality Expected: 09/18/2024 (Approximate), Expires: 09/18/2025 documented as of this encounter Visit Diagnoses Diagnosis Cyst of ovary, unspecified laterality- Primary documented in this encounter Additional Health Concerns Assessment Noted Time PHQ-9 Depression Total Score: 1 12/09/19 2:08 PM CRYSTAL CUTTER documented as of this encounter Care Teams Dice Dealer Relationship Specialty Start Date End Date Lianne Gonzalez MD [address] [place] [address] PCP - General Family Practice 09/09/18 Lianne Gonzalez MD [address] [place] [address] Assigned PCP 12/22/20 documented as of this encounter
--- OUTSIDE RECORDS SUMMARY | 2024-10-10 08:02 | XMS_ITS | Encounter Summary ---
Author Organization [facility] Address [address] [place] [address]. [place] [address] Care Team Providers Care Physician Chief Of Pathology Name Role Phone Lianne Gonzalez MD Primary Care Provider [phone] Lianne Gonzalez MD Unavailable Encounter Details Date Type Department Care Team (Late st Contact Info) Description 04/11/2021 Documentation Only INTERFACED REPORT Unknown, Provider Social [...] on file Legal Sex Female 12:27 AM TACKING STITCH REMOVER Gender Identity Not on file Sexual Orientation Not on file documented as of this encounter Plan of Treatment Upcoming Encounters Date Type Department Care Team (Late st Contact Info) Description 11/17/2024 12:45 PM TACKING STITCH REMOVER Appointment [facility] [address] [place] [phone] Lianne Gonzalez MD [address] [place], [place] [address] 11/17/2024 1:30 PM TACKING STITCH REMOVER Office Visit [facility] [address] [facility] [place] [phone] Lianne Gonzalez MD [address] [place], [place] [phone] Arianne Alanis MD [address] [place] [address] 12/01/2024 1:40 PM TACKING STITCH REMOVER Office Visit [facility] [address] [place] [phone] Lianne Gonzalez MD [address] [place] [address] documented as of this encounter Visit Diagnoses Not on filedocumented in this encounter Additional Health Concerns Assessment Noted Time PHQ-9 Depression Total Score: 1 12/09/19 21 2:08 PM TACKING STITCH REMOVER documented as of this encounter Care Teams Physician Chief Of Pathology Relationship Specialty Start Date End Date Lianne Gonzalez MD [address] [place] [address] PCP - General Family Practice 09/09/18 Lianne Gonzalez MD [address] [place] [address] Assigned PCP 12/22/20 documented as of this encounter
--- OUTSIDE RECORDS SUMMARY | 2024-10-10 08:02 | XMS_ITS | Encounter Summary ---
Author Organization [facility] Address [address] [place] [address]. [place] [address] Care Team Providers Care Management Trainee Name Role Phone Francie Castillo MD Primary Care Provider [place] Lianne Javier MD Primary Care Provider [phone] PA-C Unavailable + Lianne Gonzalez MD Unavailable Encounter Details Date Type Department Care Team (Late st Contact Info) Description 09/05/2013 Abstract [facility] [address] [place] [address] Clinic, [place] [facility] [place] [facility] [address] [place] [id number] Social History Tobacco Use Types Packs/Day Years Used Date Smoking Tobacco: Never Assessed Comments Unknown Sex and Gender Information Value Date Recorded Sex Assigned at Not on file Legal Sex Female 12:27 AM CORE MAKER HELPER Gender Identity Not on file Sexual Orientation Not on file documented as of this encounter Plan of Treatment Upcoming Encounters Date Type Department Care Team (Late st Contact Info) Description 11/17/2024 12:45 PM CORE MAKER HELPER Appointment [facility] [address] [place] [phone] Lianne Gonzalez MD [address] [place] [id number] 11/17/2024 1:30 PM CORE MAKER HELPER Office Visit [facility] [address] [place] [phone] Lianne Gonzalez MD [address] [place] [address] Arianne Alanis MD [address] [place] [address] 12/01/2024 1:40 PM CORE MAKER HELPER Office Visit [facility] [address] [place] [phone] Lianne Gonzalez MD [address] [place] [address] documented as of this encounter Visit Diagnoses Not on filedocumented in this encounter Additional Health Concerns Infection Onset Date Last Indicated Resolved Time Rule Out COVID-19 07/29/2020 07/29/2020 07/31/2020 12:33 AM CDT documented as of this encounter Care Teams Management Trainee Relationship Specialty Start Date End Date Francie Castillo MD PCP - General Family Practice 09/04/13 09/08/18 Lianne Gonzalez MD [address] [place] [address] PCP - General Family Practice 09/09/[address] PA-C [address] [place] [address] Assigned PCP 07/09/19 12/21/20 Lianne Gonzalez MD [address] [place] [address] Assigned PCP 12/22/20 documented as of this encounter
--- OUTSIDE RECORDS SUMMARY | 2024-10-10 08:02 | XMS_ITS | Encounter Summary ---
Author Organization [facility] Address [address] [place] [address]. [place] [address] Care Team Providers Care Deicer Kit Assembler Name Role Phone Lianne Gonzalez MD Primary Care Provider [phone] Lianne Gonzalez MD Unavailable Encounter Details Date Type Department Care Team (Late st Contact Info) Description 03/06/2021 Documentation Only INTERFACED REPORT Unknown, Provider Social [...] on file Legal Sex Female 12:27 AM MANAGER MILITARY Gender Identity Not on file Sexual Orientation Not on file documented as of this encounter Plan of Treatment Upcoming Encounters Date Type Department Care Team (Late st Contact Info) Description 11/17/2024 12:45 PM MANAGER MILITARY Appointment [facility] [address] [place] [phone] Lianne Gonzalez MD [address] [place], [place] [address] 11/17/2024 1:30 PM MANAGER MILITARY Office Visit [facility] [address] [facility] [place] [phone] Lianne Gonzalez MD [address] [place], [place] [phone] Arianne Alanis MD [address] [place] [address] 12/01/2024 1:40 PM MANAGER MILITARY Office Visit [facility] [address] [place] [phone] Lianne Gonzalez MD [address] [place] [address] documented as of this encounter Visit Diagnoses Not on filedocumented in this encounter Additional Health Concerns Assessment Noted Time PHQ-9 Depression Total Score: 1 12/09/19 21 2:08 PM MANAGER MILITARY documented as of this encounter Care Teams Deicer Kit Assembler Relationship Specialty Start Date End Date Lianne Gonzalez MD [address] [place] [address] PCP - General Family Practice 09/09/18 Lianne Gonzalez MD [address] [place] [address] Assigned PCP 12/22/20 documented as of this encounter
--- OUTSIDE RECORDS SUMMARY | 2024-10-10 08:02 | XMS_ITS | Encounter Summary ---
Author Organization [place] Address [address] [place] [address]. [place] [address] Care Team Providers Care Technician Automatic Name Role Phone Lianne Gonzalez MD Primary Care Provider [phone] Lianne Gonzalez MD Unavailable Encounter Details Date Type Department Care Team (Late st Contact Info) Description 03/21/2021 Documentation Only INTERFACED REPORT Unknown, Provider Social [...] on file Legal Sex Female 12:27 AM PRODUCT TESTER FIBERGLASS Gender Identity Not on file Sexual Orientation Not on file documented as of this encounter Plan of Treatment Upcoming Encounters Date Type Department Care Team (Late st Contact Info) Description 11/17/2024 12:45 PM PRODUCT TESTER FIBERGLASS Appointment [facility] [address] [place] [phone] Lianne Gonzalez MD [address] [place], [place] [address] 11/17/2024 1:30 PM PRODUCT TESTER FIBERGLASS Office Visit [facility] [address] [facility] [phone] Lianne Gonzalez MD [address] [place], [place] [phone] Arianne Alanis MD [address] [place] [address] 12/01/2024 1:40 PM PRODUCT TESTER FIBERGLASS Office Visit [facility] [address] [place] [phone] Lianne Gonzalez MD [address] [place] [address] documented as of this encounter Visit Diagnoses Not on filedocumented in this encounter Additional Health Concerns Assessment Noted Time PHQ-9 Depression Total Score: 1 12/09/19 21 2:08 PM PRODUCT TESTER FIBERGLASS documented as of this encounter Care Teams Technician Automatic Relationship Specialty Start Date End Date Lianne Gonzalez MD [address] [place] [address] PCP - General Family Practice 09/09/18 Lianne Gonzalez MD [address] [place] [address] Assigned PCP 12/22/20 documented as of this encounter
[2024-10-10 08:22] LABS: Ur HCG Qualitative* Negative (Negative)
[2024-10-10 08:31] LABS: Appearance Urine Clear (Clear); Bilirubin Urine Negative (Negative); Blood Urine Negative (Negative); Color Urine Yellow (Yellow); Glucose Urine Negative (Negative); Ketones Urine Negative (Negative); Protein Urine Negative (Negative); Specific Gravity Urine 1.015 (1.000-1.030); Urobilinogen Urine 0.2 (0.2-1.0)
[2024-10-10 08:32] LABS: Leukocyte Esterase Urine Negative (Negative); Nitrite Urine Negative (Negative); RBC Urine 0-2 (0-2); Squamous Epithelial Cell Urine Few (None-Few); WBC Urine 0-2 (0-5)
== END 2024-10-10 09:06 | disposition home or self-care (01) ==
PROVIDERS: Family Medicine; Emergency Provider Student in an Organized Health Care Education/Training Program
DX: N83.201 Unspecified ovarian cyst, right side (principal); R10.2 Pelvic and perineal pain
CPT/HCPCS: 76830; 81001; 81025; 93976; 99284; A9270

== ENCOUNTER 2024-10-19 10:30 | Day surgery (SDC) | payer OTHER, SELFPAY ==
[2024-10-19] VITALS (14 sets, daily range): BP systolic 117–142; BP diastolic 52–84; PULSE 51–78; RESP 14–20; TEMP 36.2–36.6; O2SAT 96–100; BMI 27.6
--- OUTSIDE RECORDS SUMMARY | 2024-10-19 10:33 | XMS_ITS | Clinical Summary ---
Author Organization [facility] Address [address] [place] [address]. [place] [address] Care Team Providers Care Pump Runner Name Role Phone Lianne Gonzalez MD Primary Care Provider [phone] Lianne Gonzalez MD Unavailable Allergies Active Allergy [...] Encounters Date Type Department Care Team Description 10/17/2024 [facility] Medical Advice [facility] [address] [place] [address] Lianne Gonzalez MD 09/25/2024 [facility] Medical [facility] [address] [place] [phone] Lianne Gonzalez MD Nausea (/) 09/17/2024 [facility] Medical Advice [facility] [address] [place] [phone] Lianne Gonzalez MD Patient Request (/) from [...] PF 10/01/2017, 09/24/2016,09/13/2013 MMR 09/20/2008,12/22/2004 Meningococcal ACWY (Menactra ) 07/18/2021,09/17/2016 Pneumococcal (PCV 7) 08/25/2004,2003,10/04 TDAP Vaccine (Boostrix) [...] on file Legal Sex Female 12:27 AM MACHINE WELT BUTTER Gender Identity Not on file Sexual Orientation Not on file Last Filed Vital Signs Vital Sign Reading Time Taken Comments Blood Pressure 118/72 12/08/2021 10:47 AM MACHINE WELT BUTTER Pulse 58 12/08/2021 10:47 AM MACHINE WELT BUTTER Temperature 36.7 C (98.1 F) 12/08/2021 10:47 AM MACHINE WELT BUTTER Respiratory Rate 18 12/08/2021 10:47 AM MACHINE WELT BUTTER Oxygen Saturation 98% 12/08/2021 10:47 AM MACHINE WELT BUTTER Inhaled Oxygen Concentration - - Weight 73.5 kg (162 lb) 12/08/2021 10:47 AM MACHINE WELT BUTTER Height 170.2 cm (5' 7) 12/09/2020 2:04 PM MACHINE WELT BUTTER Body Mass Index 25.37 12/09/2020 2:04 PM MACHINE WELT BUTTER Plan of Treatment Upcoming Encounters Date Type Department Care Team (Late st Contact Info) Description 11/17/2024 12:45 PM MACHINE WELT BUTTER Appointment [facility] [address] [facility] [place] [phone] Lianne Gonzalez MD [address] [place] [address] 11/17/2024 1:30 PM MACHINE WELT BUTTER Office Visit [facility] [address] [place] [phone] Lianne Gonzalez MD [address] [place] [address] Arianne Alanis MD [address] [place] [address] 12/01/2024 1:40 PM MACHINE WELT BUTTER [facility] [address] [place] [phone] Lianne Gonzalez MD [address] [place] [address] Health Maintenance Due Date Last Done Comments [...] this topic Insurance MEDICA CHOICE Care Teams Pump Runner Relationship Specialty Start Date End Date Lianne Gonzalez MD [address] [place] [id number] PCP - General Family Practice 09/09/18 Lianne Gonzalez MD [address] [place] [address] Assigned PCP 12/22/20
--- OUTSIDE RECORDS SUMMARY | 2024-10-19 10:34 | XMS_ITS | Encounter Summary ---
Author Organization [facility] Address [address] [place] [address]. [place] [address] Care Team Providers Care Rfid Engineer Name Role Phone Lianne Gonzalez MD Primary Care Provider [phone] Lianne Gonzalez MD Unavailable Encounter Details Date [...] on file Legal Sex Female 12:27 AM TRANSMISSION TESTER Gender Identity Not on file Sexual Orientation Not on file documented as of this encounter Plan of Treatment Upcoming Encounters Date Type Department Care Team (Late st Contact Info) Description 11/17/2024 12:45 PM TRANSMISSION TESTER Appointment [facility] [address] [place] [phone] Lianne Gonzalez MD [address] [place], [place] [address] 11/17/2024 1:30 PM TRANSMISSION TESTER Office Visit [facility] [address] [place] [place] [phone] Lianne Gonzalez MD [address] [place], [place] [phone] Arianne Alanis MD [address] [place] [address] 12/01/2024 1:40 PM TRANSMISSION TESTER Office Visit [facility] [address] [place] [phone] Lianne Gonzalez MD [address] [place] [address] documented as of this encounter Visit Diagnoses Not on filedocumented in this encounter Additional Health Concerns Assessment Noted Time PHQ-9 Depression Total Score: 1 12/09/19 21 2:08 PM TRANSMISSION TESTER documented as of this encounter Care Teams Rfid Engineer Relationship Specialty Start Date End Date Lianne Gonzalez MD [address] [place] [address] PCP - General Family Practice 09/09/18 Lianne Gonzalez MD [address] [place] [address] Assigned PCP 12/22/20 documented as of this encounter
--- OUTSIDE RECORDS SUMMARY | 2024-10-19 10:34 | XMS_ITS | Encounter Summary ---
Author Organization [place] Address [address] [place] [address]. [place] [address] Care Team Providers Care Progressive Care Nurse Name Role Phone Lianne Gonzalez MD Primary Care Provider [phone] Lianne Gonzalez MD Unavailable Reason for Referral * Consultation (Routine: Next available opening) - Authorized Specialty Diagnoses / Procedures Referred By Contning t Referred To Contact automation engineering manager Diagnoses Cyst of ovary, unspecified laterality Lianne Gonzalez MD [address] [place] [address] Phone: tel: fax: [facility] [address] [place] [address] Phone: tel: Referral ID Status Reason Start Date Expiration Date V isits Requested Visits Authorized [id number] Authorized 09/18/2024 09/18/2025 1 1 Question Answer Reason for Referral: Other My Clinical Question Is: follow up ovarian cysts Have orders been placed in [facility] (imaging, labs, etc.) that need to be completed prior to the patient's consult? Yes Scheduling Instructions: [facility] will call you to coordinate your care as prescribed by your provider. If you don't hear from a branch service representative within 2 business days, please call . Comments Please be aware that coverage of these services is subject to the terms and limitations of your health insurance plan. Call member services at your health plan with any benefit or coverage questions. [facility] will call you to coordinate your care as prescribed by your provider. If you don't hear from a branch service representative within 2 business days, please call . * Diagnostic Imaging Ultrasound (Routine) - Authorized Specialty Diagnoses / Procedures Referred By Contning t Referred To Contact Radiology. Diagnoses Cyst of ovary, unspecified laterality Procedures US Pelvic Complete with Transvaginal Lianne Gonzalez MD [address] [employer] [place] [address] Phone: tel: fax: Referral ID Status Reason Start Date Expiration Date V isits Requested Visits Authorized [id number] Authorized 09/18/2024 09/18/2025 1 1 Reason for Visit * Reason Onset Date Comments Patient Request 09/17/2024 Encounter Details Date Type Department Care Team (Late st Contact Info) Description 09/17/2024 MyC Medical Advice [facility] [address] [facility] [place] [phone] Lianne Gonzalez MD [address] [employer] [facility] [place] [address] Patient Request (/) Social History Tobacco Use [...] file Legal Sex Female 12:27 AM MANAGER EXPORT Gender Identity Not on file Sexual Orientation Not on file documented as of this encounter Miscellaneous Notes * Telephone Encounter - Meghan Larose RN - 09/18/2024 9:35 AM CDT 09/17/24 (ER Visit- not in system) with right abdominal pain. 2 cysts on ovaries found (one hemorrhagic and one was a possible endometrioma). Follow up in 6-8 weeks- with PCP or PARTNER MANAGER? Meghan Larose RN on 09/18/2024 at 9:36 AM documented in this encounter Plan of Treatment Upcoming Encounters Date Type Department Care Team (Late st Contact Info) Description 11/17/2024 12:45 PM MANAGER EXPORT Appointment [facility] [address] [facility] [place] [phone] Lianne Gonzalez MD [address] [place] [address] 11/17/2024 1:30 PM MANAGER EXPORT Office Visit [facility] [address] [place] [phone] Lianne Gonzalez MD [address] [place] [phone] Arianne Alanis MD [address] [place] [address] 12/01/2024 1:40 PM MANAGER EXPORT Office Visit [facility] [address] [place] [phone] Lianne Gonzalez MD [address] [place], [place] [address] Scheduled Orders Name Type Priority Associated Diagnoses Orde r Schedule US Pelvic Complete with Transvaginal Imaging Routine Cyst of ovary, unspecified laterality Expected: 11/15/2024 (Approximate), Expires: 09/18/2025 Scheduled Referrals Name Type Priority Associated Diagnoses Orde r Schedule Director Of Spa And Guest Experience Work Order Sorting Clerk Referral Referral Routine: Next available opening Cyst of ovary, unspecified laterality Expected: 09/18/2024 (Approximate), Expires: 09/18/2025 documented as of this encounter Visit Diagnoses Diagnosis Cyst of ovary, unspecified laterality- Primary documented in this encounter Additional Health Concerns Assessment Noted Time PHQ-9 Depression Total Score: 1 12/09/19 2:08 PM MANAGER EXPORT documented as of this encounter Care Teams Progressive Care Nurse Relationship Specialty Start Date End Date Lianne Gonzalez MD [address] [place] [address] PCP - General Family Practice 09/09/18 Lianne Gonzalez MD [address] [place] [address] Assigned PCP 12/22/20 documented as of this encounter
--- OUTSIDE RECORDS SUMMARY | 2024-10-19 10:34 | XMS_ITS | Encounter Summary ---
Author Organization [place] Address [address] [place] [address]. [place] [address] Care Team Providers Care Real Estate Investment Analyst Name Role Phone Lianne Gonzalez MD Primary Care Provider [phone] Lianne Gonzalez MD Unavailable Reason for Visit * Reason Onset Date Comments Nausea 09/25/2024 Encounter Details Date Type Department Care Team (Late st Contact Info) Description 09/25/2024 MyC Medical Advice [facility] [address] [place] [address] Lianne Gonzalez MD [address] [place], [place] [phone] Nausea (/) Social History Tobacco Use Types [...] on file Legal Sex Female 12:27 AM AGENCY SERVICE COORDINATOR Gender Identity Not on file Sexual Orientation [...] st Contact Info) Description 11/17/2024 12:45 PM AGENCY SERVICE COORDINATOR Appointment [address] [place] [phone] Lianne Gonzalez MD [address] [place] [address] [place], [place] [address] 11/17/2024 1:30 PM AGENCY SERVICE COORDINATOR Office Visit [address] [place] [phone] [place] [address] [place] [address] [place], [place] [phone] Arianne Alanis MD [address] [facility] [place], [place] [address] 12/01/2024 1:40 PM AGENCY SERVICE COORDINATOR Office Visit [address] [place] [phone] [place] [address] [place] [address] [place], [place] [address] documented as of this encounter Visit Diagnoses Diagnosis Nausea- Primary Nausea alone documented in this encounter Additional Health Concerns Assessment Noted Time PHQ-9 Depression Total Score: 1 12/09/19 21 2:08 PM AGENCY SERVICE COORDINATOR documented as of this encounter Care Teams Real Estate Investment Analyst Relationship Specialty Start Date End Date Lianne Gonzalez MD [address] [employer] [place] [address] PCP - General Family Practice 09/09/18 Lianne Gonzalez MD [address] [place] [address] Assigned PCP 12/22/20 documented as of this encounter
--- OUTSIDE RECORDS SUMMARY | 2024-10-19 10:34 | XMS_ITS | Encounter Summary ---
Author Organization [place] Address [address] [place], [place] [address]. [place] [address] Care Team Providers Care Kiln Tester Name Role Phone Lianne Gonzalez MD Primary Care Provider [phone] Lianne Gonzalez MD Unavailable Encounter Details Date Type Department Care Team (Late st Contact Info) Description 10/17/2024 MyC Medical Advice [facility] [address] [place] [address] Lianne Gonzalez MD [address] [employer] [facility] [place] [place] [id number] Social History Tobacco Use Types Packs/Day Years [...] on file Legal Sex Female 12:27 AM BUILDING MAINTENANCE TECHNICIAN Gender Identity Not on file Sexual Orientation Not on file documented as of this encounter Plan of Treatment Upcoming Encounters Date Type Department Care Team (Late st Contact Info) Description 11/17/2024 12:45 PM BUILDING MAINTENANCE TECHNICIAN Appointment [facility] [address] [place] [address] Lianne Gonzalez MD [address] [employer] [facility] [place] [id number] 11/17/2024 1:30 PM BUILDING MAINTENANCE TECHNICIAN Office Visit [facility] [address] [place] [phone] Lianne Gonzalez MD [address] [place] [address] Arianne Alanis MD [address] [place], [place] [address] 12/01/2024 1:40 PM BUILDING MAINTENANCE TECHNICIAN Office Visit [facility] [address] [place] [phone] Lianne Gonzalez MD [address] [place] [address] documented as of this encounter Visit Diagnoses Not on filedocumented in this encounter Additional Health Concerns Assessment Noted Time PHQ-9 Depression Total Score: 1 12/09/19 21 2:08 PM BUILDING MAINTENANCE TECHNICIAN documented as of this encounter Care Teams Kiln Tester Relationship Specialty Start Date End Date Lianne Gonzalez MD [address] [place] [address] PCP - General Family Practice 09/09/18 Lianne Gonzalez MD [address] [place] [address] Assigned PCP 12/22/20 documented as of this encounter
--- OUTSIDE RECORDS SUMMARY | 2024-10-19 10:34 | XMS_ITS | Encounter Summary ---
Author Organization [facility] Address [address] [place] [address]. [place] [address] Care Team Providers Care Telegrapher Agent Name Role Phone Lianne Gonzalez MD Primary Care Provider [phone] Lianne Gonzalez MD Unavailable Encounter Details Date [...] file Legal Sex Female 12:27 AM BUILDING AND GROUNDS SUPERVISOR Gender Identity Not on file Sexual Orientation Not on file documented as of this encounter Plan of Treatment Upcoming Encounters Date Type Department Care Team (Late st Contact Info) Description 11/17/2024 12:45 PM BUILDING AND GROUNDS SUPERVISOR Appointment [facility] [address] [place] [phone] Lianne Gonzalez MD [address] [place], [place] [address] 11/17/2024 1:30 PM BUILDING AND GROUNDS SUPERVISOR Office Visit [facility] [address] [facility] [place] [phone] Lianne Gonzalez MD [address] [place], [place] [phone] Arianne Alanis MD [address] [place] [address] 12/01/2024 1:40 PM BUILDING AND GROUNDS SUPERVISOR Office Visit [facility] [address] [place] [phone] Lianne Gonzalez MD [address] [place] [address] documented as of this encounter Visit Diagnoses Not on filedocumented in this encounter Additional Health Concerns Assessment Noted Time PHQ-9 Depression Total Score: 1 12/09/19 21 2:08 PM BUILDING AND GROUNDS SUPERVISOR documented as of this encounter Care Teams Telegrapher Agent Relationship Specialty Start Date End Date Lianne Gonzalez MD [address] [place] [address] PCP - General Family Practice 09/09/18 Lianne Gonzalez MD [address] [place] [address] Assigned PCP 12/22/20 documented as of this encounter
--- OUTSIDE RECORDS SUMMARY | 2024-10-19 10:34 | XMS_ITS | Encounter Summary ---
Author Organization [place] Address [address] [place] [address]. [place] [address] Care Team Providers Care Long Wall Mining Machine Helper Name Role Phone Lianne Gonzalez MD Primary Care Provider [phone] Lianne Gonzalez MD Unavailable Encounter Details Date [...] on file Legal Sex Female 12:27 AM APPARATUS OPERATOR Gender Identity Not on file Sexual Orientation Not on file documented as of this encounter Plan of Treatment Upcoming Encounters Date Type Department Care Team (Late st Contact Info) Description 11/17/2024 12:45 PM APPARATUS OPERATOR Appointment [facility] [address] [place] [phone] Lianne Gonzalez MD [address] [place], [place] [address] 11/17/2024 1:30 PM APPARATUS OPERATOR Office Visit [facility] [address] [facility] [place] [phone] Lianne Gonzalez MD [address] [place], [place] [phone] Arianne Alanis MD [address] [place] [address] 12/01/2024 1:40 PM APPARATUS OPERATOR Office Visit [facility] [address] [place] [phone] Lianne Gonzalez MD [address] [place] [address] documented as of this encounter Visit Diagnoses Not on filedocumented in this encounter Additional Health Concerns Assessment Noted Time PHQ-9 Depression Total Score: 1 12/09/19 21 2:08 PM APPARATUS OPERATOR documented as of this encounter Care Teams Long Wall Mining Machine Helper Relationship Specialty Start Date End Date Lianne Gonzalez MD [address] [place] [address] PCP - General Family Practice 09/09/18 Lianne Gonzalez MD [address] [place] [address] Assigned PCP 12/22/20 documented as of this encounter
--- OUTSIDE RECORDS SUMMARY | 2024-10-19 10:34 | XMS_ITS | Encounter Summary ---
Author Organization [place] Address [address] [place] [address]. [place] [address] Care Team Providers Care Entry Level Lab Technician Name Role Phone Lianne Gonzalez MD Primary Care Provider [phone] Lianne Gonzalez MD Unavailable Encounter Details Date [...] on file Legal Sex Female 12:27 AM TRAVEL SPECIALIST Gender Identity Not on file Sexual Orientation Not on file documented as of this encounter Plan of Treatment Upcoming Encounters Date Type Department Care Team (Late st Contact Info) Description 11/17/2024 12:45 PM TRAVEL SPECIALIST Appointment [facility] [address] [place] [phone] Lianne Gonzalez MD [address] [place], [place] [address] 11/17/2024 1:30 PM TRAVEL SPECIALIST Office Visit [facility] [address] [facility] [place] [phone] Lianne Gonzalez MD [address] [place], [place] [phone] Arianne Alanis MD [address] [place] [address] 12/01/2024 1:40 PM TRAVEL SPECIALIST Office Visit [facility] [address] [place] [phone] Lianne Gonzalez MD [address] [place] [address] documented as of this encounter Visit Diagnoses Not on filedocumented in this encounter Additional Health Concerns Assessment Noted Time PHQ-9 Depression Total Score: 1 12/09/19 21 2:08 PM TRAVEL SPECIALIST documented as of this encounter Care Teams Entry Level Lab Technician Relationship Specialty Start Date End Date Lianne Gonzalez MD [address] [place] [address] PCP - General Family Practice 09/09/18 Lianne Gonzalez MD [address] [place] [address] Assigned PCP 12/22/20 documented as of this encounter
--- OUTSIDE RECORDS SUMMARY | 2024-10-19 10:34 | XMS_ITS | Referral Summary ---
Author Organization [place] Address [address] [place] [address]. [place] [address] Care Team Providers Care Bag Mender Name Role Phone Lianne Gonzalez MD Primary Care Provider [phone] Lianne Gonzalez MD Unavailable Encounters Date Type Department Care Team Description 10/17/2024 [facility] [address] [place] [phone] Lianne Gonzalez MD 09/25/2024 [facility] [address] [place] [phone] Lianne Gonzalez MD Nausea (/) 09/17/2024 [facility] [address] [place] [phone] Lianne Gonzalez MD Patient Request (/) from [...] on file Legal Sex Female 12:27 AM INTAKE COORDINATOR Gender Identity Not on file Sexual Orientation Not on file Last Filed Vital Signs Vital Sign Reading Time Taken Comments Blood Pressure 118/72 12/08/2021 10:47 AM INTAKE COORDINATOR Pulse 58 12/08/2021 10:47 AM INTAKE COORDINATOR Temperature 36.7 C (98.1 F) 12/08/2021 10:47 AM INTAKE COORDINATOR Respiratory Rate 18 12/08/2021 10:47 AM INTAKE COORDINATOR Oxygen Saturation 98% 12/08/2021 10:47 AM INTAKE COORDINATOR Inhaled Oxygen Concentration - - Weight 73.5 kg (162 lb) 12/08/2021 10:47 AM INTAKE COORDINATOR Height 170.2 cm (5' 7) 12/09/2020 2:04 PM INTAKE COORDINATOR Body Mass Index 25.37 12/09/2020 2:04 PM INTAKE COORDINATOR Plan of Treatment Upcoming Encounters Date Type Department Care Team (Late st Contact Info) Description 11/17/2024 12:45 PM INTAKE COORDINATOR Appointment [facility] [address] [place] [phone] Lianne Gonzalez MD [address] [place] [phone] 11/17/2024 1:30 PM INTAKE COORDINATOR Office Visit [facility] [address] [place] [phone] Lianne Gonzalez MD [address] [place], [place] [address] Arianne Alanis MD [address] [place] [address] 12/01/2024 1:40 PM INTAKE COORDINATOR Office Visit [facility] [address] [place] [phone] Lianne Gonzalez MD [address] [place] [address] Insurance MEDICA CHOICE Care Teams Bag Mender Relationship Specialty Start Date End Date Lianne Gonzalez MD [address] [place] [address] PCP - General Family Practice 10/12/18 Lianne Gonzalez MD [address] [place] [address] Assigned PCP 12/22/20
--- OUTSIDE RECORDS SUMMARY | 2024-10-19 10:34 | XMS_ITS | Encounter Summary ---
Author Organization [facility] Address [address] [place] [address]. [place] [address] Care Team Providers Care Chemical Etch Operator Name Role Phone Francie Castillo MD Primary Care Provider Unavaila Lianne Javier MD Primary Care Provider + [address] PA-C Unavailable + Lianne Gonzalez MD Unavailable Encounter Details Date Type Department Care Team (Late st Contact Info) Description 09/05/2013 Abstract [facility] [address] [place] [address] Clinic, [facility] [address] [place] [id number] Social History Tobacco Use Types Packs/Day Years Used Date Smoking Tobacco: Never Assessed Comments Unknown Sex and Gender Information Value Date Recorded Sex Assigned at Not on file Legal Sex Female 12:27 AM AIRLINE HOSTESS Gender Identity Not on file Sexual Orientation Not on file documented as of this encounter Plan of Treatment Upcoming Encounters Date Type Department Care Team (Late st Contact Info) Description 11/17/2024 12:45 PM AIRLINE HOSTESS Appointment [facility] [address] [place] [phone] Lianne Gonzalez MD [address] [place] [id number] 11/17/2024 1:30 PM AIRLINE HOSTESS Office Visit [facility] [address] [place] [phone] Lianne Gonzalez MD [address] [place] [address] Arianne Alanis MD [address] [place] [address] 12/01/2024 1:40 PM AIRLINE HOSTESS Office Visit [facility] [address] [place] [phone] Lianne Gonzalez MD [address] [place] [address] documented as of this encounter Visit Diagnoses Not on filedocumented in this encounter Additional Health Concerns Infection Onset Date Last Indicated Resolved Time Rule Out COVID-19 07/29/2020 07/29/2020 07/31/2020 12:33 AM CDT documented as of this encounter Care Teams Chemical Etch Operator Relationship Specialty Start Date End Date Francie Castillo MD PCP - General Family Practice 09/04/13 09/08/18 Lianne Gonzalez MD [address] [place] [address] PCP - General Family Practice 09/09/[address] PA-C [address] [place] [address] Assigned PCP 07/09/19 12/21/20 Lianne Gonzalez MD [address] [place] [address] Assigned PCP 12/22/20 documented as of this encounter
[2024-10-19] MEDS: SODIUM CHLORIDE 0.9 % (FLUSH) 10 ML SYRINGE IVF (10:55)
[2024-10-19 11:14] LABS: Hemoglobin* 12.4 gm/dL (12.0-16.0)
[2024-10-19 11:35] LABS: Ur HCG Qualitative* Negative (Negative)
--- NOTE | 2024-10-19 11:47 | W.PM.H&PU ---
History & Physical Update History & Physical Update H&P Reviewed and patient assessed: No changes noted
--- NOTE | 2024-10-19 11:47 | PM.PROC ---
Procedure Note Time Seen by Provider: 14:36 Date Seen: 10/19/24 Date of procedure: 10/19/24 Will [facility] bill your pro fee for this procedure?: Yes Procedure Description: Preoperative diagnosis: 19-year-old nulligravid woman with right lower quadrant pain and 2 right adnexal cysts on ultrasound Postoperative diagnosis: Same. Procedure: Laparoscopic ovarian cystectomy x2, left ovarian cyst aspiration, multiple peritoneal biopsies, fulguration of left ovarian endometriosis implants. Anesthesia: General endotracheal, local Surgeon: Melania Sheriff MD Lay Out Inspector: Dorothy Beal MD EBL: 25 mL Urine output: 200 mL clear urine IVF: 500 ml Specimen: 1. Right ovarian cyst wall x2. 2. Right uterosacral ligament biopsies. 3. Left uterosacral ligament biopsy. 4. Left posterior cul-de-sac biopsy. 5. Right ovarian fossa peritoneal biopsy Findings: On exam under anesthesia: The uterus was anteverted, less than 8 week size, mobile, without masses or nodularity palpable. Adnexa were without mass or fullness bilaterally. The uterus sounded to 8 cm. On laparoscopy: The uterus, bilateral and bilateral fallopian tubes appeared normal. The right ovary had 2 cysts that were endometriomas each approximately 4 - 4.5 cm in diameter. The left ovary had multiple endometriosis implants on its surface with a serous/purpose luteum cyst. Multiple endometriosis implants in the posterior cul-de-sac and along the uterosacral ligament. Multiple endometriosis implants in the right ovarian fossa. Procedure: Claire was taken to the operating room where general anesthetic was found to be adequate. She was placed in the dorsal lithotomy position and an exam under anesthesia was performed with findings stated above. She was then prepped and draped in a normal sterile manner. A Chatterjee catheter was then placed. A bivalve speculum was then placed in the vaginal canal to visualize the cervix. The anterior lip of the cervix was grasped with an a long Allis clamp. The cervix was dilated to Hegar 6. Uterus was sounded to 8 cm. A [employer] uterine manipulator was then placed. Attention was then turned to performing the laparoscopic portion of the procedure. All incisions were injected with 0.25% Marcaine prior to incision. A vertical 5 mm infraumbilical, incision, was made and a 5 mm trocar placed under direct visualization with the laparoscope. The abdomen was then insufflated with carbon dioxide gas to a pressure of 15 mm of mercury. To bilateral lower quadrant trocars were then placed under direct visualization. Both were placed approximately 3-4 finger breaths medial to the ischial crests. The right trocar was 5 mm the left trocar was 11 mm. A left mid quadrant 5 mm trocar was also placed. A diagnostic laparoscopy was then performed with findings stated above. Attention was turned performing the ovarian cystectomy. The [employer] pencil using the spatula attachment was used to incise over 1 of the right ovarian cyst. Brown, thick liquid consistent with an endometrioma was within the cyst. The cyst wall was grasped with an Allis clamp and the ovarian serosa grasped with 2 [place] graspers. The cyst wall was removed from the ovarian serosa with blunt pressure. During removal of the 1st cyst wall the 2nd cyst was punctured and more brown, thick liquid consistent with an endometrioma was visualized. Once the 1st cyst wall was removed. The 2nd cyst wall was removed in a similar manner. The base of the cysts was cauterized with the bipolar spatula attachment to the [employer] pencil. The base of the ovary was irrigated and excellent hemostasis noted. Attention was then turned to the left ovary were multiple endometriosis implants were fulgurated using the bipolar cautery on the [employer]le[employer] pencil/spatula. The cyst was punctured and noted to have clear, serous fluid. Attention was then turned to the posterior cul-de-sac were multiple peritoneal work biopsies were performed over both uterosacral ligaments, the posterior cul-de-sac and the right ovarian fossa. Small blood vessels were cauterized using bipolar cautery. Both ureters were noted to be away from the areas of biopsy and cautery. The cul-de-sac was filled with 300 mL of fluid to prevent adhesions. The fascia of the left lower quadrant, 11 mm trocar, was reapproximated using the Hernesto-Davidson fascial closure device. The remaining trocars were removed under direct visualization. The CO2 gas was allowed to escape the infraumbilical port prior to its removal. The incisions were reapproximated using 4-0 Monocryl in a subcuticular manner. Exofin skin adhesive was then applied. The uterine manipulator and Chatterjee catheter were removed. The patient tolerated this procedure well. Sponge, lap and instrument counts were correct x2 at the end of the procedure and the patient was taken to the recovery area in stable condition. The patient received 30 mg of IV Toradol prior to being awakened from anesthesia. Anesthesia: GETA and local Lay Out Inspector: Dorothy Beal Pathology: specimen obtained, sent to pathology Condition: stable Disposition: same day
--- NOTE | 2024-10-19 12:38 | W.ANESCHARGE ---
Anesthesia Charges Start Date/Time Anesthesia Start Date: 10/19/24 Anesthesia Start Time: 12:11 Stop Date/Time Anesthesia Stop Date: 10/19/24 Anesthesia Stop Time: 14:47
[2024-10-19] MEDS: 0.9 % SODIUM CHLORIDE 500 ML 500 ML 100 ML IV (14:59)
[2024-10-19] MEDS: fentaNYL 100 MCG/2 ML inj 50 MCG IVP (15:02)
--- NOTE | 2024-10-19 15:10 | W.ANESCHARGE ---
Anesthesia Charges Start Date/Time Anesthesia Start Date: 10/19/24 Anesthesia Start Time: 12:11 Stop Date/Time Anesthesia Stop Date: 10/19/24 Anesthesia Stop Time: 14:47
[2024-10-19] MEDS: OXYCODONE 5 MG TABLET PO (15:38)
[2024-10-19] MEDS: METOCLOPRAMIDE HCL 5 MG/ML INJ 10 MG IVP (16:05)
== END 2024-10-19 16:27 | disposition home or self-care (01) ==
PROVIDERS: Visit Provider Obstetrics & Gynecology
PROC: (CPT 58662; principal; 2024-10-19 12:00)
DX: N80.103 Endometriosis of bilateral ovaries, unspecified depth (principal); N80.3C3 Endometriosis of bilateral uterosacral ligament(s), unspecified depth; N80.329 Endometriosis of the posterior cul-de-sac, unspecified depth; N83.291 Other ovarian cyst, right side; R10.31 Right lower quadrant pain
CPT/HCPCS: 58662; 49322; 49321; 00840; 36415; 81025; 85018; 86850; 86900; 86901; 88305; A9270; J0330; J1100; J1885; J2405; J2704; J2710; J2765; J3010; J7030